=== PATIENT | female | born 1950 | race Caucasian/White ===

== ENCOUNTER 2018-10-01 10:57 | Outpatient (CLI) | payer MEDICARE, SELFPAY ==
--- NOTE | 2018-10-01 11:58 | DI.RAD_ITS ---
SYMPTOMS/DIAGNOSIS: LT KNEE PAIN, ? DJD LEFT KNEE: There is slight narrowing of the medial tibial femoral joint space. The study is otherwise unremarkable and is consistent with mild DJD.
== END 2018-10-01 11:17 ==
PROVIDERS: PCP General Practice; Referring Provider General Practice; Visit Provider Orthopaedic Surgery
DX: M25.562 Pain in left knee (principal); M17.12 Unilateral primary osteoarthritis, left knee
CPT/HCPCS: 73562; 99211; 99213